=== PATIENT | female | born 1980 | race Caucasian/White ===

== ENCOUNTER 2016-12-11 05:53 | Inpatient (IN) ==
[2016-12-11] MEDS ORDERED: Penicillin G Potassium 5,000,000 UNIT in D5% in Water (Mini-Bag+) 100 ML IVPB ONE (06:41)
[2016-12-11] MEDS ORDERED: miSOPROStol 25 MCG TABLET VG PRN (06:43)
[2016-12-11] MEDS ORDERED: *HR* Nalbuphine 20 MG/ML AMPUL IVP PRN (06:47)
--- NOTE | 2016-12-11 07:02 | OB/GYN History & Physical ---
Date of Encounter: 12/11/16 Time of Encounter: 07:00 Assessment and Plan (1) 39 weeks gestation of Current visit: Yes Status: Acute - 0.25 g Cytotec vaginally. - Patient group B strep positive we will prophylax with penicillin. (2) Hypertension affecting in third trimester Current visit: No Status: Acute -Continue with induction. -We will continue to monitor hypertension throughout labor. (3) AMA (advanced maternal age) multigravida 35+ Current visit: Yes Status: Chronic Qualifiers: Trimester: third trimester Qualified Code(s): O09.523 - Supervision of elderly multigravida, third trimester (4) Uterine fibroid complicating care, baby not yet delivered Current visit: Yes Status: Acute History of Present Illness HPI: Ms. Randle is a 36 year old female 38 weeks and 4 days gestation complicated by gestational hypertension and large uterine fibroid. She is seen by maternal medicine several times to assess route of delivery and facility of delivery. She has also had an anesthesia consult. is also complicated by advanced maternal age. She is group B positive blood type is AB+ . She denies any recent illnesses and has no complaints at this time. Risk and benefits of induction were discussed with the patient. We will start the induction today. Past Med Surg Social Fam HX - Past Medical History Medical history: other Psychiatric history: no psych history - Past Surgical History Surgical History: other - Social History Smoking Status: Never smoker Alcohol use: none Drug use: none - Family History Mother Living Status: Still Living Hx Family Cardiac Disorders: No Hx Family Respiratory Disorders: No Hx Family Cancer: No Hx Family GI Disorders: No Hx Family Endocrine Disorder: No Hx Family Neuromuscular Disorders: No Hx Family Neurologic Disorders: No Hx Family HEENT Disorders: No Hx Family Autoimmune Disorders: No Obstetrical History - Pregnancies : 2 Para: 1 Medications and Allergies Vit Calc,Iron,Folic [ Vitamins] 1 each PO DAILY 11/04/16 [ History] Allergies No Known Allergies Allergy (Verified 11/04/16 15:25) Review of System OB All systems PM: reviewed and no additional remarkable complaints except as stated - Constitutional Constitutional ROS IM: no chills, no fever(s), no headache(s), no weakness - Nose, mouth, and throat Nose, mouth and throat: no dizziness, no nasal congestion, no neck pain, no sinus pain, no sore throat, no vertigo - Cardiovascular Cardiovascular: no chest pain, no edema, no leg edema, no lightheadedness, no pedal edema, no syncope - Respiratory Respiratory: no cough, no dyspnea - Gastrointestinal Gastrointestinal: no abdominal pain, no constipation, no cramping, no diarrhea, no hematemesis, no hematochezia, no nausea, no vomiting - Genitourinary Genitourinary: amenorrhea, no difficulty voiding, no urinary frequency, no urinary incontinence, no vaginal discharge - Menstruation Menstruation: amenorrhea, other (Large uterine fibroid) - Integumentary Integumentary: no rash, no wounds - Neurological Nerological: no abnormal gait, no confusion, no dizziness, no headache(s), no syncope, no vertigo, no weakness Exam - Constitutional Constitutional: well developed, well nourished, no acute distress - HEENT HEENT: EOMI, PERRL, Normocephaly, Mucus Membranes Moist - Neck Neck exam: full ROM, normal inspection, supple - Lungs Respiratory exam: CTAB - Cardiovascular Cardiovascular exam: RRR - Abdomen Abdomen: Present: bowel sounds normal, gravid, non tender - Extremities Extremities exam: full ROM, normal capillary refill, normal inspection, radial pulses palpable and symetrical Deep Tendon Reflex Grade: 2+ Normal - Vulva Vulva: bilateral: normal - Vagina Vagina: Present: normal moisture - Cervix Dilation: 2 Effacement: 60 Station: -2 - Uterus Uterus exam: Present: enlarged Results Result Diagrams: 12/11/16 06:15 All other labs normal. - VTE Reasons for not Prescribing Prophylaxis: Treatment not Indicated - Low risk for VTE
[2016-12-11 07:08] LABS: Basophils % 0.3 %; Eosinophils # 0.1 K/mcL (0.0-0.6); Eosinophils % 0.7 %; Hemoglobin 11.4 g/dL (11.5-15.4); Immature Granulocytes % 0.7 % (0-4); Lymphocytes # 1.5 K/mcL (0.6-4.6); Mean Corpuscular HGB Conc 32.6 g/dL (31.6-35.5); Mean Corpuscular Hemoglobin 28.1 pg (28.0-33.3); Mean Corpuscular Volume 86.4 fL (83.0-100.0); Mean Platelet Volume 12.8 fL (9.4-12.4); Monocytes # 0.6 K/mcL (0.0-1.3); Monocytes % 9.5 %; Neutrophils # 4.4 K/mcL (1.6-8.9); Red Blood Count 4.05 M/mcL (3.82-4.97); Red Cell Distribution Width 13.7 % (11.5-14.5); Segmented Neutrophils % 65.8 %
[2016-12-11] MEDS: Ringers Solution, Lactated 1,000 ML ONE ×2 (07:33→12:29)
[2016-12-11 07:48] LABS: Platelet Count 201 K/mcL (140-400)
--- NOTE | 2016-12-11 08:26 | Anesthesia Evaluation PreOp ---
Date of Encounter: 12/11/16 Time of Encounter: 08:24 - Past History Planned Operation: EFREN Cardiac History: HTN (during , no meds) Pulmonary History: Denies Any Significant HX SUPERVISOR INSPECTING History: Denies Any Significant HX Other Medical History: Other (uterine fibroids, pt understands increased risk of bleeding, hemorrhage.) Anesthesia History: No Prior Anesthetic Complications, Past Anesthesia : Yes Alcohol Use: none Drug use: none Medications and Allergies Vit Calc,Iron,Folic [ Vitamins] 1 each PO DAILY 11/04/16 [ History] Allergies No Known Allergies Allergy (Verified 11/04/16 15:25) - Meds/Allergy Pre-op Review Medications Reviewed: Yes Allergies Reviewed: Yes Beta Blockers on Current Med List: No Anesthesia Results - Labs 12/11/16 06:15 Anesthesia Exam NPO (# of Hours): 6 Pain Scale: 3 Pain Scale Used: Numeric (1 - 10) - HEENT Pupil (Motor): Pupils equal Mallampati: II Teeth: Normal Oral Opening: Greater than 3 - SUPERVISOR INSPECTING LOC: Oriented SUPERVISOR INSPECTING Motor: Normal RUE, Normal LUE, Normal RLE, Normal LLE, Normal Face SUPERVISOR INSPECTING Sensory: Normal: RUE, LUE, RLE, LLE, Face - Cardiac Rhythm: Regular Murmur: None JVD: No Carotid Bruit: No - Pulmonary Breath Sounds: bilateral Clear Respiratory Effort: Symmetrical Anesthesia Assess/Plan ASA Score: 3 Modified Gladys Scale for Level of Consciousness: Cooperative, oriented, and tranquil Anesthetic Plan: General (plan b), Regional (plan a) Autologous Blood: Yes (type/cross 2 units) Monitoring Plan: Standard Monitors
--- NOTE | 2016-12-11 10:08 | OB Labor Progress Note ---
Date of Encounter: 12/11/16 Time of Encounter: 10:06 Labor Progress Note - Subjective Subjective: Patient resting in bed, denies any pain at this time. 25mcg of vaginal cytotec was placed 2 hours ago. - Cervix Cervix: 2/50/-3 - Heart Tones Heart Tones: 135 bpm moderate variability +15x15 accels no decels noted. CAt. 1 tracing. - [place]: every 2 min - Interventions Interventions: SVE - Plan Plan: Continue labor management
[2016-12-11] MEDS ORDERED: Penicillin G Potassium 2,500,000 UNIT in D5% in Water 100 ML IVPB SCH (11:00)
[2016-12-11] MEDS ORDERED: Ringers Solution, Lactated 1,000 ML ONE ×2 (12:29→13:16)
--- NOTE | 2016-12-11 13:02 | OB Labor Progress Note ---
Date of Encounter: 12/11/16 Time of Encounter: 13:00 Labor Progress Note - Subjective Subjective: Patient requesting epidural. - Cervix Cervix: Spontaneous rupture of membranes. Fluid was clear. 3-4 CM 80% effaced -1 station - Heart Tones Heart Tones: Category 1 - Interventions Interventions: IUPC placed. - Plan Plan: Continue to monitor labor progression. Have anesthesia place an epidural. Consider Pitocin.
[2016-12-11] MEDS ORDERED: EPHEDrine 50 MG/ML VIAL IVP PRN (13:11)
[2016-12-11] MEDS ORDERED: Ondansetron 4 MG/2 ML VIAL IVP PRN (13:11)
[2016-12-11] MEDS ORDERED: Ringers Solution, Lactated 500 ML IVC ONE (13:11)
[2016-12-11] MEDS ORDERED: Epidural Premix (fent/bupiv) 110 ML EP SCH (13:15)
[2016-12-11] MEDS ORDERED: Epidural Premix (fent/bupiv) 110 ML EP ONE (13:15)
--- NOTE | 2016-12-11 15:13 | Anesthesia Procedures ---
Date of Encounter: 12/11/16 Time of Encounter: 13:55 Procedures: Anesthesia - Epidural/Spinal Patient ID/Chart reviewed: Yes Patient examined: Yes OB Eval: Gestational age: 38 OB Eval: : 2 OB Eval: Hx Para: 1 OB Eval: Dilated at (cm): 4 OB Eval: Contractions: Non-stressed pattern Consent Obtained: Yes Supplemental Oxygen: None/Room Air Site Prep: Aseptic Technique, Sterile prep and drape, Povidone-Iodine 1% Patient position: upright Local Anesthetic: Lidocaine 1% Amount of Local Anesthetic used: 3 Touhy Needle Gauge: 18 Touhy Needle Depth (cm): 9 Catheter Depth at Skin (cm): 15 Test Dose (1.5% Lido + Epi): Volume given (mls): 5 Test Dose Result: Negative Loading Dose: Other: 10mls of epidural pharm bag solution Loading Dose Administered: Thru Catheter Infusion Med: 0.125% Bupivacaine w/ 2 mcg/ml Fentanyl Infusion Rate (mls/hr): [address]: Tegaderm, Tape Interspace Used: L2-L3 Loss of Resistance (RICHARD): Yes Blood: No CSF: No Paresthesia: No Procedure: pt tolerated procedure well. no complications. vss. see qs for complete vitals. fhr stable. difficult epidural placement. epidural needle placed x3.
--- NOTE | 2016-12-11 15:43 | OB Labor Progress Note ---
Date of Encounter: 12/11/16 Time of Encounter: 15:42 Labor Progress Note - Subjective Subjective: Patient labor progressing. Patient has epidural in place. - Cervix Cervix: 5 cm. 80%. -1 station - Heart Tones Heart Tones: Category 1 - Plan Plan: Continue with normal liver progression.
[2016-12-11] MEDS ORDERED: Oxytocin 20 units/ LR 1000 mL 20 UNIT/1,000 ML BAG IVC ONE ×2 (16:01→19:14)
--- NOTE | 2016-12-11 18:07 | OB/GYN Procedure Note ---
Delivery - Delivery Date: 12/11/16 Provider: Genaro Augustine Intrapartum events: none Delivery induction: misoprostol Delivery augmentation: rupture of membranes Delivery monitor: external FHT, external uterine, internal uterine Anesthesia: epidural Estimated Blood Loss: 300 - (s) A Infant Delivery Date: 12/11/16 Infant Delivery Time: 15:56 Presentation: vertex Position: TONI Gender: Female Viability: Viable Pounds: 6 Ounces: 4 Weight Gram: 2.84 kg at 1 minute: 8 at 5 mins: 9 Shoulder Dystocia: not encountered Placenta: spontaneous - Repair Episiotomy: none - Complications Delivery complications: none - Disposition Mom disposition: stable in LDR [place] disposition: stable in LDR (Patient delivered a live female at 1556 on . Weight was 6 lbs. 4 oz. Apgars were 8 and 9 minutes. Blood loss was 300 mL. Position was right occiput anterior. Placenta delivered intact spontaneously .)
[2016-12-11] MEDS ORDERED: Acetaminophen 325 MG TABLET PO PRN (19:14)
[2016-12-11] MEDS ORDERED: Oxytocin 20 units/ LR 1000 mL 20 UNIT/1,000 ML BAG IV SCH (19:14)
[2016-12-11] MEDS ORDERED: Measles/Mumps/Rubella Vacc 0.5 ML VIAL SQ PRN (19:14)
[2016-12-12 03:28] LABS: Basophils % 0.2 %; Eosinophils # 0.1 K/mcL (0.0-0.6); Eosinophils % 0.7 %; Hematocrit 30.4 % (35.3-44.9); Immature Granulocytes % 0.2 % (0-4); Lymphocytes # 1.5 K/mcL (0.6-4.6); Lymphocytes % 18.2 %; Mean Corpuscular HGB Conc 32.9 g/dL (31.6-35.5); Mean Corpuscular Hemoglobin 28.9 pg (28.0-33.3); Mean Corpuscular Volume 87.9 fL (83.0-100.0); Mean Platelet Volume 12.2 fL (9.4-12.4); Monocytes # 0.7 K/mcL (0.0-1.3); Monocytes % 9.1 %; Neutrophils # 5.8 K/mcL (1.6-8.9); Platelet Count 155 K/mcL (140-400); Red Blood Count 3.46 M/mcL (3.82-4.97); Red Cell Distribution Width 13.6 % (11.5-14.5); Segmented Neutrophils % 71.6 %
[2016-12-12] MEDS: Prenatal Vit/FA 1 EACH TABLET PO SCH (08:28)
[2016-12-12] MEDS: Ibuprofen 600 MG TABLET PO PRN ×2 (08:28→15:23)
--- NOTE | 2016-12-12 11:56 | OB/GYN Progress Note ---
Date of Encounter: 12/12/16 Time of Encounter: 11:56 - Assessment and Plan (1) Status post vaginal delivery Current Visit: Yes Status: Acute Vitals are mild range so no indications for anti hypertensives at this time, ambulation encouraged, cont current inpt care, discharge tomorrow Subjective - Subjective Patient reports: appetite normal, voiding normally, pain well controlled, ambulating normally : doing well (lochia light) Objective - Latest Vital Signs Latest vital signs: Vital Signs Temp Pulse Resp BP Pulse Ox 12/12/16 08:14 18 12/12/16 07:57 97.3 F L 98 18 147/93 12/12/16 03:06 98.2 F 88 16 143/90 97 12/11/16 21:04 98.3 F 95 16 145/97 98 12/11/16 20:00 98.2 F 97 16 143/94 98 12/11/16 19:00 97.6 F 79 18 144/93 100 Intake and Output 12/11/16 12/12/16 12/12/16 23:59 07:59 15:59 Intake Total 500 / 500 120 / 120 Output Total 900 / 900 Balance -400 / -400 120 / 120 Intake: Oral 500 / 500 120 / 120 Output: Urine 900 / 900 Other: Meal Breakfast Percent of Meal Consumed 100% Weight 111.4 kg - Exam Lungs: bilateral: normal Chest: Normal S1, Normal S2 Extremities: Present: normal Abdomen: Present: normal appearance, soft Uterus: Present: normal - Labs Labs: Laboratory Results - last 24 hr 12/12/16 03:12 WBC 8.1 RBC 3.46 L Hgb 10.0 L Hct 30.4 L MCV 87.9 MCH 28.9 MCHC 32.9 RDW 13.6 Plt Count 155 MPV 12.2 Immature Gran % 0.2 Seg Neutrophils % 71.6 Lymphocytes % 18.2 Monocytes % 9.1 Eosinophils % 0.7 Basophils % 0.2 Neutrophils # 5.8 Lymphocytes # 1.5 Monocytes # 0.7 Eosinophils # 0.1 Basophils # 0.0
[2016-12-13] MEDS: Ibuprofen 600 MG TABLET PO PRN (03:45)
[2016-12-13 08:15] VITALS: BP 124/80
[2016-12-13] MEDS: Prenatal Vit/FA 1 EACH TABLET PO SCH (08:23)
--- NOTE | 2016-12-13 08:45 | Discharge Summary ---
Date of Encounter: 12/13/16 Time of Encounter: 08:44 - Discharge Diagnosis (1) Status post vaginal delivery Priority: Primary Status: Acute Comments: Patient is status post normal spontaneous vaginal delivery. Patient's pain is controlled. She is ambulating appropriately. She is tolerating a regular diet and bowel/bladder function intact. Patient will be discharged home. (2) Uterine fibroid during , delivered, current hospitalization Priority: Secondary Status: Acute (3) Hypertension affecting , delivered, current hospitalization Priority: Secondary Status: Acute - Discharge Medications Prescriptions: Breast Pump [BREAST PUMP] 1 each .ROUTE AD #1 each Home Medications: Vit Calc,Iron,Folic [ Vitamins] 1 each PO DAILY 11/04/16 [ History] Breast Pump [BREAST PUMP] 1 each .ROUTE AD #1 each 12/13/16 [Rx] Allergies/Adverse Reactions: Allergies No Known Allergies Allergy (Verified 11/04/16 15:25) Data Procedures and tests throughout hospitalization: Laboratory Tests 12/11/16 12/11/16 12/12/16 06:15 08:11 03:12 WBC 6.7 8.1 RBC 4.05 3.46 L Hgb 11.4 L 10.0 L Hct 35.0 L 30.4 L MCV 86.4 87.9 MCH 28.1 28.9 MCHC 32.6 32.9 RDW 13.7 13.6 Plt Count 201 155 MPV 12.8 H 12.2 Immature Gran % 0.7 0.2 Seg Neutrophils % 65.8 71.6 Lymphocytes % 23.0 18.2 Monocytes % 9.5 9.1 Eosinophils % 0.7 0.7 Basophils % 0.3 0.2 Neutrophils # 4.4 5.8 Lymphocytes # 1.5 1.5 Monocytes # 0.6 0.7 Eosinophils # 0.1 0.1 Basophils # 0.0 0.0 Blood Type AB POSITIVE Antibody Screen NEGATIVE Crossmatch See Detail Date of admission: 12/11/16 05:53 Primary care physician: Katrina Drake Consults: 12/11/16 19:14 Consult to [employer]ane [employer] Feeding Machine Operator [CONS] Routine Comment: Vaginal delivery, consult needed Discharging clinician: Genaro Augustine Anticipated date of discharge: 12/13/16 - Patient Status Disposition: Home, Self-Care Condition: Good - Discharge Instructions Follow Up With: Katrina Drake MD [Primary Care Provider] - - Diet and Activity Activity: increase activity as tolerated Diet: advance to your usual diet Hospital Course Reason for admission: induction of labor Delivery: Episiotomy: none Other procedures: none Discharge diagnosis: IUP at term delivered Hospital course: Ms Randle is a 36yo female who is now status post vaginal delivery. was complicated by gestational hypertension, large uterine fibroid and advanced maternal age. Patient has successful vaginal delivery. She is doing well today and pain is controlled. She is able to ambulate appropriately. She is tolerating a regular diet and bowel/bladder function is intact. Patient will be discharged home. Time Attestation: Total time spent providing and/or coordinating discharge services: Exam - Constitutional Vitals: Temp Pulse Resp BP Pulse Ox 97.8 F 81 16 124/80 99 12/13/16 08:14 12/13/16 08:14 12/13/16 08:14 12/13/16 08:14 12/12/16 19:50 General appearance IM: A&O X 3, no acute distress, answers questions appropriately - Respiratory Respiratory exam: Present: CTAB - Cardiovascular Cardiovascular exam IM: Present: RRR - GI/Abdominal GI/Abdominal exam IM: normal bowel sounds - Neurological Exam Neurological exam: alert, CN II-XII intact, oriented X3
== END 2016-12-13 11:15 | disposition home or self-care (01) | DRG 775 ==
LOC: 1NENULAB 05:53 → 1NENUOBS 19:13
PROVIDERS: ADMIT Obstetrics & Gynecology; ATTEND Obstetrics & Gynecology